=== PATIENT | female | born 1945 | race Caucasian/White ===

== ENCOUNTER 2018-07-26 09:05 | Inpatient (IN) ==
[2018-07-26] MEDS ORDERED: SODIUM CHLORIDE 0.9% 1,000 ML IV STA (09:20)
[2018-07-26] MEDS ORDERED: ONDANSETRON 4 MG/2 ML VIAL IV STA (09:20)
[2018-07-26] MEDS ORDERED: PANTOPRAZOLE 40 MG VIAL IV STA (09:20)
[2018-07-26 09:46] LABS: Basophils % 0.5 % (0.0-0.8); Eosinophils # 0.1 10*3/uL (0.0-0.87); Eosinophils % 1.1 % (0.00-10.9); Hematocrit 37.4 VOL% (35.7-47.0); Hemoglobin 11.4 GM/DL (12.0-16.0); Immature Granulocytes % 0.6 %; Immature Granulocytes Absolute 0.05 #; Lymphocytes # 0.8 10*3/uL (1.4-4.0); Mean Corpuscular HGB Conc 30.5 GM/DL (32-36); Mean Corpuscular Volume 94.2 FL (87-102); Mean Platelet Volume 10.3 FL (9.6-12.0); Monocytes % 4.4 % (1.7-12.7); Neutrophils % 83.4 % (38.7-73.9); Platelet Count 246 T/CUMM (130-400); Red Blood Count 3.97 MC/CUMM (3.8-5.5); Red Cell Distribution Width 13.3 % (9.3-17.3); White Blood Count 8.4 T/CUMM (4-12)
[2018-07-26 09:50] LABS: Apearance,Urine CLEAR (Clear); Bilirubin,Urine Negative (Negative); Blood, Urine Negative (Negative); Glucose,Urine (UA) Negative (Negative); Ketones,Urine Negative (Negative); Nitrite,Urine Positive (Negative); Protein,Urine Negative; RBC,Urine 3 /HPF (0-4); Squamous Epithelial Cell,Urine Occasional /HPF (0-10); Urine Color Amber (Yellow); Urine Specific Gravity 1.008 (1.001-1.035); Urine Urobilinogen < 2.0 EU/DL (0.2-1.0); WBC,Urine 1 /HPF (0-6)
[2018-07-26 09:54] LABS: PT Patient Result 10.4 SECS; Partial Thromboplastin Time 22.3 SECS (0-40)
[2018-07-26 10:08] LABS: Albumin 3.8 G/DL (3.4-5.0); Bilirubin,Total 0.6 MG/DL (0.2-1.0); Calcium 9.4 MG/DL (8.5-10.1); Osmolality,Calculated 291.7 MOS/KG (273-304); Total Protein 7.6 G/DL (6.4-8.3)
[2018-07-26] MEDS ORDERED: GLUCAGON 1 MG VIAL IM PRN (14:32)
[2018-07-26] MEDS ORDERED: INSULIN LISPRO 100 UNIT/ML SUBCUT SCH (14:32)
[2018-07-26] MEDS ORDERED: DEXTROSE 50% 25 GM/50 ML VIAL IV PRN (14:32)
[2018-07-26] MEDS ORDERED: DEXTROSE 10% 250 ML IV PRN (14:35)
[2018-07-26] MEDS: SODIUM CHLORIDE 0.9% 1,000 ML IV SCH (15:30)
[2018-07-26] MEDS: PIPERACILLIN/TAZOBACTAM 3,375 MG in SODIUM CHLORIDE 0.9% 100 ML IV SCH (15:33)
[2018-07-26] MEDS: ACETAMINOPHEN 325 MG TABLET PO PRN (16:20)
[2018-07-26] MEDS: ONDANSETRON 4 MG/2 ML VIAL IV PRN (16:23)
[2018-07-26] MEDS ORDERED: HYOSCYAMINE 0.125 MG TABLET PO PRN (17:03)
[2018-07-26] MEDS: INSULIN REGULAR 100 UNIT/ML SUBCUT SCH ×2 (17:21→21:05)
[2018-07-26] MEDS: BACLOFEN 10 MG TABLET PO SCH (21:04)
[2018-07-26] MEDS: DONEPEZIL 10 MG TABLET PO SCH (21:04)
[2018-07-26] MEDS: MEMANTINE 10 MG TABLET PO SCH (21:04)
[2018-07-26] MEDS: PREGABALIN 50 MG CAPSULE PO SCH (21:05)
[2018-07-26] MEDS: DOCUSATE SODIUM 100 MG CAPSULE PO SCH (21:05)
[2018-07-26] MEDS: ATORVASTATIN 40 MG TABLET PO SCH (21:05)
[2018-07-27] MEDS: PIPERACILLIN/TAZOBACTAM 3,375 MG in SODIUM CHLORIDE 0.9% 100 ML IV SCH ×3 (00:20→17:06)
[2018-07-27 04:47] LABS: Basophils # 0.1 10*3/uL (0.0-0.2); Basophils % 0.8 % (0.0-0.8); Eosinophils # 0.2 10*3/uL (0.0-0.87); Eosinophils % 2.6 % (0.00-10.9); Hematocrit 32.9 VOL% (35.7-47.0); Hemoglobin 10.2 GM/DL (12.0-16.0); Immature Granulocytes % 0.3 %; Immature Granulocytes Absolute 0.02 #; Lymphocytes # 1.7 10*3/uL (1.4-4.0); Lymphocytes % 27.4 % (21.3-54.2); Mean Corpuscular Volume 94.3 FL (87-102); Monocytes % 6.5 % (1.7-12.7); Neutrophils % 62.4 % (38.7-73.9); Platelet Count 219 T/CUMM (130-400); Red Blood Count 3.49 MC/CUMM (3.8-5.5); Red Cell Distribution Width 13.6 % (9.3-17.3); White Blood Count 6.1 T/CUMM (4-12)
[2018-07-27 05:16] LABS: Bilirubin,Total 0.8 MG/DL (0.2-1.0); Calcium 8.8 MG/DL (8.5-10.1); Osmolality,Calculated 294.1 MOS/KG (273-304); Total Protein 6.2 G/DL (6.4-8.3)
[2018-07-27] MEDS: SODIUM CHLORIDE 0.9% 1,000 ML IV SCH ×2 (07:22→15:41)
[2018-07-27] MEDS: INSULIN REGULAR 100 UNIT/ML SUBCUT SCH ×4 (07:31→22:56)
[2018-07-27] MEDS ORDERED: LACTATED RINGERS 1,000 ML IV SCH (08:00)
[2018-07-27] MEDS: INSULIN GLARGINE 100 UNIT/ML SUBCUT SCH (08:05)
[2018-07-27] MEDS ORDERED: POTASSIUM CHLORIDE 10 MEQ TABLET PO SCH (09:00)
[2018-07-27] MEDS ORDERED: LIDOCAINE 1% 5 ML VIAL ONE (10:32)
[2018-07-27] MEDS ORDERED: PROPOFOL 200 MG/20 ML VIAL IV ONE (10:32)
[2018-07-27] MEDS: ONDANSETRON 4 MG/2 ML VIAL IV PRN (14:03)
[2018-07-27] MEDS ORDERED: ONDANSETRON 4 MG/2 ML VIAL ONE (14:03)
[2018-07-27] MEDS: MAGNESIUM CHLORIDE 64 MG TABLET PO SCH (15:33)
[2018-07-27] MEDS: MULTIVITAMIN (CENTRUM) TABLET PO SCH (15:34)
[2018-07-27] MEDS: amLODIPine 5 MG TABLET PO SCH (15:34)
[2018-07-27] MEDS: DOCUSATE SODIUM 100 MG CAPSULE PO SCH ×2 (15:34→22:34)
[2018-07-27] MEDS: hydroCHLOROthiazide 25 MG TABLET PO SCH (15:34)
[2018-07-27] MEDS: MEMANTINE 10 MG TABLET PO SCH ×2 (15:35→22:34)
[2018-07-27] MEDS: PANTOPRAZOLE 40 MG TABLET PO SCH (15:35)
[2018-07-27] MEDS: FUROSEMIDE 20 MG TABLET PO SCH (15:35)
[2018-07-27] MEDS ORDERED: BISACODYL 5 MG TABLET PO ONE (16:00)
[2018-07-27] MEDS ORDERED: POLYETHYLENE GLYCOL POWDER 255 GM BOTTLE PO ONE (18:00)
[2018-07-27] MEDS: BACLOFEN 10 MG TABLET PO SCH (22:34)
[2018-07-27] MEDS: ATORVASTATIN 40 MG TABLET PO SCH (22:35)
[2018-07-27] MEDS: DONEPEZIL 10 MG TABLET PO SCH (22:35)
[2018-07-27] MEDS: PREGABALIN 50 MG CAPSULE PO SCH (22:35)
[2018-07-28] MEDS: PIPERACILLIN/TAZOBACTAM 3,375 MG in SODIUM CHLORIDE 0.9% 100 ML IV SCH ×3 (01:02→17:21)
[2018-07-28] MEDS: SODIUM CHLORIDE 0.9% 1,000 ML IV SCH ×3 (02:30→17:22)
[2018-07-28] MEDS ORDERED: MAGNESIUM CITRATE 300 ML BOTTLE PO ONE (06:00)
[2018-07-28] MEDS: INSULIN REGULAR 100 UNIT/ML SUBCUT SCH ×4 (07:42→21:48)
[2018-07-28] MEDS: ACETAMINOPHEN 325 MG TABLET PO PRN ×3 (09:02→21:55)
[2018-07-28] MEDS ORDERED: PROPOFOL 200 MG/20 ML VIAL IV ONE (10:32)
[2018-07-28] MEDS ORDERED: LIDOCAINE 1% 5 ML VIAL ONE (10:32)
[2018-07-28] MEDS ORDERED: PHENYLEPHRINE 1 MG/10 ML SYRINGE IV ONE (10:32)
[2018-07-28] MEDS: INSULIN GLARGINE 100 UNIT/ML SUBCUT SCH ×2 (13:59→15:57)
[2018-07-28] MEDS: hydroCHLOROthiazide 25 MG TABLET PO SCH (13:59)
[2018-07-28] MEDS: MULTIVITAMIN (CENTRUM) TABLET PO SCH (13:59)
[2018-07-28] MEDS: FUROSEMIDE 20 MG TABLET PO SCH ×2 (13:59→15:57)
[2018-07-28] MEDS: DOCUSATE SODIUM 100 MG CAPSULE PO SCH ×2 (13:59→21:48)
[2018-07-28] MEDS: MEMANTINE 10 MG TABLET PO SCH ×2 (14:00→21:48)
[2018-07-28] MEDS: amLODIPine 5 MG TABLET PO SCH (14:00)
[2018-07-28] MEDS: MAGNESIUM CHLORIDE 64 MG TABLET PO SCH (14:00)
[2018-07-28] MEDS: PANTOPRAZOLE 40 MG TABLET PO SCH (14:00)
[2018-07-28] MEDS: ONDANSETRON 4 MG/2 ML VIAL IV PRN (14:13)
[2018-07-28] MEDS: DONEPEZIL 10 MG TABLET PO SCH (21:47)
[2018-07-28] MEDS: PREGABALIN 50 MG CAPSULE PO SCH (21:47)
[2018-07-28] MEDS: ATORVASTATIN 40 MG TABLET PO SCH (21:47)
[2018-07-28] MEDS: ZINC OXIDE PASTE 113 GM TUBE TOP SCH (21:48)
[2018-07-28] MEDS: BACLOFEN 10 MG TABLET PO SCH (21:48)
[2018-07-29] MEDS: PIPERACILLIN/TAZOBACTAM 3,375 MG in SODIUM CHLORIDE 0.9% 100 ML IV SCH ×2 (02:14→09:58)
[2018-07-29] MEDS: ONDANSETRON 4 MG/2 ML VIAL IV PRN (02:50)
[2018-07-29 05:33] LABS: Basophils # 0.1 10*3/uL (0.0-0.2); Basophils % 0.7 % (0.0-0.8); Eosinophils # 0.2 10*3/uL (0.0-0.87); Eosinophils % 3.1 % (0.00-10.9); Hematocrit 33.8 VOL% (35.7-47.0); Immature Granulocytes Absolute 0.07 #; Lymphocytes # 1.3 10*3/uL (1.4-4.0); Lymphocytes % 19.3 % (21.3-54.2); Mean Corpuscular HGB Conc 29.6 GM/DL (32-36); Mean Corpuscular Volume 97.4 FL (87-102); Mean Platelet Volume 10.5 FL (9.6-12.0); Monocytes % 7.8 % (1.7-12.7); Neutrophils % 68.1 % (38.7-73.9); Platelet Count 216 T/CUMM (130-400); Red Blood Count 3.47 MC/CUMM (3.8-5.5); Red Cell Distribution Width 13.8 % (9.3-17.3); White Blood Count 6.7 T/CUMM (4-12)
[2018-07-29 05:52] LABS: Calcium 8.4 MG/DL (8.5-10.1)
[2018-07-29 08:14] VITALS: BP 164/63
[2018-07-29] MEDS: INSULIN REGULAR 100 UNIT/ML SUBCUT SCH (08:19)
[2018-07-29] MEDS: INSULIN GLARGINE 100 UNIT/ML SUBCUT SCH (09:09)
[2018-07-29] MEDS: amLODIPine 5 MG TABLET PO SCH (09:10)
[2018-07-29] MEDS: PANTOPRAZOLE 40 MG TABLET PO SCH (09:10)
[2018-07-29] MEDS: MEMANTINE 10 MG TABLET PO SCH (09:10)
[2018-07-29] MEDS: DOCUSATE SODIUM 100 MG CAPSULE PO SCH (09:10)
[2018-07-29] MEDS: MULTIVITAMIN (CENTRUM) TABLET PO SCH (09:10)
[2018-07-29] MEDS: ZINC OXIDE PASTE 113 GM TUBE TOP SCH (09:10)
[2018-07-29] MEDS: hydroCHLOROthiazide 25 MG TABLET PO SCH (09:10)
[2018-07-29] MEDS: FUROSEMIDE 20 MG TABLET PO SCH (09:12)
[2018-07-29] MEDS: MAGNESIUM CHLORIDE 64 MG TABLET PO SCH (09:18)
[2018-07-29] MEDS: SODIUM CHLORIDE 0.9% 1,000 ML IV SCH (09:58)
== END 2018-07-29 10:05 | disposition home health service (06) | DRG 378 ==
LOC: N.ED 09:05 → N.EDINP 10:32 → N.2E 14:52
PROVIDERS: ADMIT Family Medicine; ATTEND Family Medicine

== ENCOUNTER 2018-08-13 06:08 | Inpatient (IN) ==
[2018-08-13] MEDS ORDERED: SODIUM CHLORIDE 0.9% 500 ML IV STA (06:33)
[2018-08-13] MEDS ORDERED: cefTRIAXone 1,000 MG in SODIUM CHLORIDE 0.9% 100 ML IV STA (06:47)
[2018-08-13 08:35] LABS: Basophils # 0.1 10*3/uL (0.0-0.2); Basophils % 0.6 % (0.0-0.8); Eosinophils # 0.2 10*3/uL (0.0-0.87); Eosinophils % 1.9 % (0.00-10.9); Hematocrit 37.9 VOL% (35.7-47.0); Hemoglobin 11.6 GM/DL (12.0-16.0); Immature Granulocytes % 0.5 %; Immature Granulocytes Absolute 0.05 #; Lymphocytes # 1.3 10*3/uL (1.4-4.0); Lymphocytes % 11.7 % (21.3-54.2); Mean Corpuscular HGB Conc 30.6 GM/DL (32-36); Mean Corpuscular Volume 95.2 FL (87-102); Mean Platelet Volume 11.6 FL (9.6-12.0); Monocytes % 5.6 % (1.7-12.7); Neutrophils % 79.7 % (38.7-73.9); Platelet Count 255 T/CUMM (130-400); Red Blood Count 3.98 MC/CUMM (3.8-5.5)
[2018-08-13 08:41] LABS: Albumin 3.3 G/DL (3.4-5.0); Bilirubin,Total 0.7 MG/DL (0.2-1.0); Total Protein 7.5 G/DL (6.4-8.3)
[2018-08-13 08:51] LABS: Apearance,Urine Slightly Hazy (Clear); Bacteria,Urine Few /HPF (Few); Bilirubin,Urine Negative (Negative); Blood, Urine Small mg/dL (Negative); Glucose,Urine (UA) Negative (Negative); Hyaline Casts,Urine 5 /LPF (0-3); Ketones,Urine Negative (Negative); Mucus,Urine Occasional /LPF (Occasional); Nitrite,Urine Positive (Negative); Protein,Urine Negative; RBC,Urine <1 /HPF (0-4); Squamous Epithelial Cell,Urine Occasional /HPF (0-10); Transitional Epi Cells,Urine Occasional /HPF (<1); Urine Color Yellow (Yellow); Urine Specific Gravity 1.014 (1.001-1.035); Urine Urobilinogen < 2.0 EU/DL (0.2-1.0); WBC,Urine 34 /HPF (0-6)
[2018-08-13] MEDS ORDERED: ONDANSETRON 4 MG/2 ML VIAL IV PRN (09:05)
[2018-08-13] MEDS: ENOXAPARIN 30 MG/0.3 ML SYRINGE SUBCUT SCH (09:19)
[2018-08-13] MEDS ORDERED: SODIUM CHLORIDE 0.9% 1,000 ML IV SCH (09:30)
[2018-08-13] MEDS ORDERED: DEXTROSE 10% 250 ML BAG IV PRN (12:13)
[2018-08-13] MEDS ORDERED: GLUCAGON 1 MG VIAL IM PRN ×2 (12:13→12:16)
[2018-08-13] MEDS ORDERED: DEXTROSE 50% 25 GM/50 ML VIAL IV PRN (12:16)
[2018-08-13] MEDS: amLODIPine 5 MG TABLET PO SCH (13:46)
[2018-08-13] MEDS: cefTRIAXone 1,000 MG in SYRINGE 1 EACH IV SCH (13:46)
[2018-08-13] MEDS: SODIUM CHLORIDE 0.45% 1,000 ML IV SCH (14:00)
[2018-08-13] MEDS: ACETAMINOPHEN 325 MG TABLET PO PRN (14:58)
[2018-08-13] MEDS: ZINC OXIDE PASTE 113 GM TUBE TOP SCH ×2 (15:02→21:17)
[2018-08-13] MEDS: INSULIN REGULAR 100 UNIT/ML SUBCUT SCH ×2 (17:02→21:02)
[2018-08-13] MEDS: DONEPEZIL 10 MG TABLET PO SCH (20:24)
[2018-08-13] MEDS: BACLOFEN 10 MG TABLET PO SCH (20:24)
[2018-08-13] MEDS: MEMANTINE 10 MG TABLET PO SCH (20:24)
[2018-08-13] MEDS: CLORAZEPATE 7.5 MG TABLET PO SCH (20:24)
[2018-08-13] MEDS: DOCUSATE SODIUM 100 MG CAPSULE PO SCH (20:24)
[2018-08-13] MEDS: PREGABALIN 50 MG CAPSULE PO SCH (20:24)
[2018-08-13] MEDS: ATORVASTATIN 40 MG TABLET PO SCH (20:24)
[2018-08-14] MEDS: SODIUM CHLORIDE 0.45% 1,000 ML IV SCH ×2 (02:21→16:43)
[2018-08-14 04:41] LABS: Basophils # 0.1 10*3/uL (0.0-0.2); Basophils % 0.5 % (0.0-0.8); Eosinophils # 0.2 10*3/uL (0.0-0.87); Eosinophils % 2.1 % (0.00-10.9); Hematocrit 35.9 VOL% (35.7-47.0); Hemoglobin 10.9 GM/DL (12.0-16.0); Immature Granulocytes % 0.7 %; Immature Granulocytes Absolute 0.07 #; Lymphocytes # 1.2 10*3/uL (1.4-4.0); Lymphocytes % 12.1 % (21.3-54.2); Mean Corpuscular HGB Conc 30.4 GM/DL (32-36); Monocytes % 7.2 % (1.7-12.7); Neutrophils % 77.4 % (38.7-73.9); Platelet Count 242 T/CUMM (130-400); Red Blood Count 3.78 MC/CUMM (3.8-5.5); Red Cell Distribution Width 13.4 % (9.3-17.3); White Blood Count 9.6 T/CUMM (4-12)
[2018-08-14 05:23] LABS: Calcium 8.7 MG/DL (8.5-10.1); Osmolality,Calculated 286.5 MOS/KG (273-304)
[2018-08-14] MEDS: INSULIN REGULAR 100 UNIT/ML SUBCUT SCH ×4 (07:46→21:15)
[2018-08-14] MEDS ORDERED: INSULIN GLARGINE 100 UNIT/ML SUBCUT SCH (09:00)
[2018-08-14] MEDS: ENOXAPARIN 30 MG/0.3 ML SYRINGE SUBCUT SCH (09:07)
[2018-08-14] MEDS: CLORAZEPATE 7.5 MG TABLET PO SCH ×2 (09:08→20:52)
[2018-08-14] MEDS: amLODIPine 5 MG TABLET PO SCH (09:08)
[2018-08-14] MEDS: MAGNESIUM CHLORIDE 64 MG TABLET PO SCH (09:08)
[2018-08-14] MEDS: PANTOPRAZOLE 40 MG TABLET PO SCH (09:08)
[2018-08-14] MEDS: DOCUSATE SODIUM 100 MG CAPSULE PO SCH ×2 (09:08→20:51)
[2018-08-14] MEDS: ZINC OXIDE PASTE 113 GM TUBE TOP SCH (09:08)
[2018-08-14] MEDS: MEMANTINE 10 MG TABLET PO SCH ×2 (09:08→20:51)
[2018-08-14] MEDS: PIOGLITAZONE 15 MG TABLET PO SCH (09:08)
[2018-08-14] MEDS: cefTRIAXone 1,000 MG in SYRINGE 1 EACH IV SCH (12:00)
[2018-08-14] MEDS: ATORVASTATIN 40 MG TABLET PO SCH (20:52)
[2018-08-14] MEDS: DONEPEZIL 10 MG TABLET PO SCH (20:53)
[2018-08-14] MEDS: BACLOFEN 10 MG TABLET PO SCH (20:53)
[2018-08-14] MEDS: PREGABALIN 50 MG CAPSULE PO SCH (20:53)
[2018-08-15] MEDS: ZINC OXIDE PASTE 113 GM TUBE TOP SCH ×3 (01:30→21:12)
[2018-08-15] MEDS: ACETAMINOPHEN 325 MG TABLET PO PRN (02:45)
[2018-08-15 04:57] LABS: Basophils # 0.1 10*3/uL (0.0-0.2); Basophils % 0.4 % (0.0-0.8); Eosinophils # 0.1 10*3/uL (0.0-0.87); Eosinophils % 0.8 % (0.00-10.9); Hematocrit 33.7 VOL% (35.7-47.0); Hemoglobin 10.4 GM/DL (12.0-16.0); Immature Granulocytes Absolute 0.11 #; Lymphocytes % 8.9 % (21.3-54.2); Mean Corpuscular HGB Conc 30.9 GM/DL (32-36); Mean Corpuscular Volume 93.4 FL (87-102); Mean Platelet Volume 11.4 FL (9.6-12.0); Neutrophils % 80.9 % (38.7-73.9); Platelet Count 251 T/CUMM (130-400); Red Blood Count 3.61 MC/CUMM (3.8-5.5); Red Cell Distribution Width 13.2 % (9.3-17.3); White Blood Count 11.4 T/CUMM (4-12)
[2018-08-15] MEDS ORDERED: INSULIN GLARGINE 100 UNIT/ML SUBCUT SCH (05:30)
[2018-08-15 05:45] LABS: Calcium 8.8 MG/DL (8.5-10.1)
[2018-08-15] MEDS: SODIUM CHLORIDE 0.45% 1,000 ML IV SCH ×2 (06:32→18:00)
[2018-08-15] MEDS: INSULIN REGULAR 100 UNIT/ML SUBCUT SCH ×4 (08:26→21:10)
[2018-08-15] MEDS: MAGNESIUM CHLORIDE 64 MG TABLET PO SCH (10:47)
[2018-08-15] MEDS: CLORAZEPATE 7.5 MG TABLET PO SCH ×2 (10:48→21:11)
[2018-08-15] MEDS: DOCUSATE SODIUM 100 MG CAPSULE PO SCH ×2 (10:48→21:11)
[2018-08-15] MEDS: amLODIPine 5 MG TABLET PO SCH (10:50)
[2018-08-15] MEDS: PIOGLITAZONE 15 MG TABLET PO SCH (10:57)
[2018-08-15] MEDS: MEMANTINE 10 MG TABLET PO SCH ×2 (10:57→21:11)
[2018-08-15] MEDS: PANTOPRAZOLE 40 MG TABLET PO SCH (10:57)
[2018-08-15] MEDS: ENOXAPARIN 30 MG/0.3 ML SYRINGE SUBCUT SCH (10:58)
[2018-08-15] MEDS: cefTRIAXone 1,000 MG in SYRINGE 1 EACH IV SCH (13:21)
[2018-08-15] MEDS: DONEPEZIL 10 MG TABLET PO SCH (21:11)
[2018-08-15] MEDS: BACLOFEN 10 MG TABLET PO SCH (21:11)
[2018-08-15] MEDS: ATORVASTATIN 40 MG TABLET PO SCH (21:11)
[2018-08-15] MEDS: PREGABALIN 50 MG CAPSULE PO SCH (21:11)
[2018-08-16] MEDS: ACETAMINOPHEN 325 MG TABLET PO PRN (05:28)
[2018-08-16 05:32] LABS: Basophils % 0.2 % (0.0-0.8); Eosinophils # 0.1 10*3/uL (0.0-0.87); Eosinophils % 0.9 % (0.00-10.9); Hematocrit 33.5 VOL% (35.7-47.0); Hemoglobin 10.9 GM/DL (12.0-16.0); Immature Granulocytes % 0.7 %; Immature Granulocytes Absolute 0.09 #; Lymphocytes # 1.3 10*3/uL (1.4-4.0); Mean Corpuscular HGB Conc 32.5 GM/DL (32-36); Mean Corpuscular Volume 92.5 FL (87-102); Mean Platelet Volume 11.7 FL (9.6-12.0); Monocytes % 6.9 % (1.7-12.7); Neutrophils % 81.3 % (38.7-73.9); Platelet Count 281 T/CUMM (130-400); Red Blood Count 3.62 MC/CUMM (3.8-5.5); Red Cell Distribution Width 13.3 % (9.3-17.3); White Blood Count 12.6 T/CUMM (4-12)
[2018-08-16] MEDS: SODIUM CHLORIDE 0.45% 1,000 ML IV SCH ×3 (05:38→18:24)
[2018-08-16 05:53] LABS: Platelet Estimate Adequate
[2018-08-16] MEDS ORDERED: KETOROLAC 30 MG/1 ML VIAL IV ONE (08:28)
[2018-08-16] MEDS: MAGNESIUM CHLORIDE 64 MG TABLET PO SCH (08:59)
[2018-08-16] MEDS: CLORAZEPATE 7.5 MG TABLET PO SCH ×2 (09:00→20:05)
[2018-08-16] MEDS: PIOGLITAZONE 15 MG TABLET PO SCH (09:00)
[2018-08-16] MEDS: PANTOPRAZOLE 40 MG TABLET PO SCH (09:00)
[2018-08-16] MEDS: MEMANTINE 10 MG TABLET PO SCH ×2 (09:01→20:05)
[2018-08-16] MEDS: DOCUSATE SODIUM 100 MG CAPSULE PO SCH ×2 (09:01→20:04)
[2018-08-16] MEDS: amLODIPine 5 MG TABLET PO SCH (09:01)
[2018-08-16] MEDS: ENOXAPARIN 30 MG/0.3 ML SYRINGE SUBCUT SCH (09:02)
[2018-08-16] MEDS: INSULIN REGULAR 100 UNIT/ML SUBCUT SCH ×4 (09:04→23:13)
[2018-08-16] MEDS: INSULIN GLARGINE 100 UNIT/ML SUBCUT SCH (09:07)
[2018-08-16] MEDS: COLCHICINE 0.6 MG CAPSULE PO SCH (09:10)
[2018-08-16] MEDS: ZINC OXIDE PASTE 113 GM TUBE TOP SCH ×2 (09:15→20:05)
[2018-08-16] MEDS: cefTRIAXone 1,000 MG in SYRINGE 1 EACH IV SCH (12:30)
[2018-08-16] MEDS: BACLOFEN 10 MG TABLET PO SCH (20:04)
[2018-08-16] MEDS: DONEPEZIL 10 MG TABLET PO SCH (20:05)
[2018-08-16] MEDS: ATORVASTATIN 40 MG TABLET PO SCH (20:05)
[2018-08-16] MEDS: PREGABALIN 50 MG CAPSULE PO SCH (20:05)
[2018-08-17] MEDS: SODIUM CHLORIDE 0.45% 1,000 ML IV SCH ×2 (07:29→21:36)
[2018-08-17] MEDS: PIOGLITAZONE 15 MG TABLET PO SCH (09:39)
[2018-08-17] MEDS: CLORAZEPATE 7.5 MG TABLET PO SCH ×2 (09:39→21:39)
[2018-08-17] MEDS: MEMANTINE 10 MG TABLET PO SCH ×2 (09:40→21:35)
[2018-08-17] MEDS: amLODIPine 5 MG TABLET PO SCH (09:40)
[2018-08-17] MEDS: COLCHICINE 0.6 MG CAPSULE PO SCH (09:41)
[2018-08-17] MEDS: INSULIN REGULAR 100 UNIT/ML SUBCUT SCH ×4 (09:42→21:42)
[2018-08-17] MEDS: INSULIN GLARGINE 100 UNIT/ML SUBCUT SCH (09:43)
[2018-08-17] MEDS: ENOXAPARIN 30 MG/0.3 ML SYRINGE SUBCUT SCH (09:44)
[2018-08-17] MEDS: DOCUSATE SODIUM 100 MG CAPSULE PO SCH ×2 (09:45→21:35)
[2018-08-17] MEDS: cefTRIAXone 2,000 MG in SYRINGE 1 EACH IV SCH (09:45)
[2018-08-17] MEDS: ZINC OXIDE PASTE 113 GM TUBE TOP SCH ×2 (09:45→21:44)
[2018-08-17] MEDS: MAGNESIUM CHLORIDE 64 MG TABLET PO SCH (11:58)
[2018-08-17] MEDS: PANTOPRAZOLE 40 MG TABLET PO SCH (11:58)
[2018-08-17] MEDS: ATORVASTATIN 40 MG TABLET PO SCH (21:35)
[2018-08-17] MEDS: BACLOFEN 10 MG TABLET PO SCH (21:35)
[2018-08-17] MEDS: PREGABALIN 50 MG CAPSULE PO SCH (21:35)
[2018-08-18] MEDS: INSULIN REGULAR 100 UNIT/ML SUBCUT SCH ×4 (07:35→21:14)
[2018-08-18] MEDS: SODIUM CHLORIDE 0.45% 1,000 ML IV SCH ×2 (07:37→21:01)
[2018-08-18] MEDS: CLORAZEPATE 7.5 MG TABLET PO SCH ×2 (10:02→21:11)
[2018-08-18] MEDS: PANTOPRAZOLE 40 MG TABLET PO SCH (10:03)
[2018-08-18] MEDS: COLCHICINE 0.6 MG CAPSULE PO SCH (10:03)
[2018-08-18] MEDS: DOCUSATE SODIUM 100 MG CAPSULE PO SCH ×2 (10:04→21:13)
[2018-08-18] MEDS: MEMANTINE 10 MG TABLET PO SCH ×2 (10:04→21:16)
[2018-08-18] MEDS: PIOGLITAZONE 15 MG TABLET PO SCH (10:04)
[2018-08-18] MEDS: amLODIPine 5 MG TABLET PO SCH (10:04)
[2018-08-18] MEDS: MAGNESIUM CHLORIDE 64 MG TABLET PO SCH (10:05)
[2018-08-18] MEDS: ZINC OXIDE PASTE 113 GM TUBE TOP SCH ×2 (10:06→21:13)
[2018-08-18] MEDS: ENOXAPARIN 30 MG/0.3 ML SYRINGE SUBCUT SCH (10:07)
[2018-08-18] MEDS: INSULIN GLARGINE 100 UNIT/ML SUBCUT SCH (10:08)
[2018-08-18] MEDS: cefTRIAXone 2,000 MG in SYRINGE 1 EACH IV SCH (10:09)
[2018-08-18] MEDS: PREGABALIN 50 MG CAPSULE PO SCH (21:11)
[2018-08-18] MEDS: BACLOFEN 10 MG TABLET PO SCH (21:11)
[2018-08-18] MEDS: ATORVASTATIN 40 MG TABLET PO SCH (21:11)
[2018-08-19] MEDS: INSULIN REGULAR 100 UNIT/ML SUBCUT SCH ×2 (09:27→12:38)
[2018-08-19] MEDS: PIOGLITAZONE 15 MG TABLET PO SCH (09:29)
[2018-08-19] MEDS: amLODIPine 5 MG TABLET PO SCH (09:29)
[2018-08-19] MEDS: CLORAZEPATE 7.5 MG TABLET PO SCH (09:29)
[2018-08-19] MEDS: PANTOPRAZOLE 40 MG TABLET PO SCH (09:29)
[2018-08-19] MEDS: MAGNESIUM CHLORIDE 64 MG TABLET PO SCH (09:30)
[2018-08-19] MEDS: MEMANTINE 10 MG TABLET PO SCH (09:30)
[2018-08-19] MEDS: ENOXAPARIN 30 MG/0.3 ML SYRINGE SUBCUT SCH (09:30)
[2018-08-19] MEDS: cefTRIAXone 2,000 MG in SYRINGE 1 EACH IV SCH (09:30)
[2018-08-19] MEDS: COLCHICINE 0.6 MG CAPSULE PO SCH (09:30)
[2018-08-19] MEDS: INSULIN GLARGINE 100 UNIT/ML SUBCUT SCH (09:31)
[2018-08-19] MEDS: ZINC OXIDE PASTE 113 GM TUBE TOP SCH (09:32)
[2018-08-19] MEDS: DOCUSATE SODIUM 100 MG CAPSULE PO SCH (12:36)
[2018-08-19 12:48] VITALS: BP 150/56
[2018-08-19] MEDS ORDERED: TUBERCULIN SKIN TEST 0.1 ML SYRINGE INTRADERM ONE (13:17)
== END 2018-08-19 15:45 | disposition swing bed (61) | DRG 690 ==
LOC: EDUNIT# → EDBD → N.ED 06:08 → N.EDINP 09:05 → N.4E 10:15
PROVIDERS: ADMIT Family Medicine; ATTEND Family Medicine